=== PATIENT | female | born 1960 | race American Indian/Alaskan Native ===

== ENCOUNTER 2016-12-03 00:49 | Emergency (ER) | payer OTHER ==
[2016-12-03 00:57] VITALS: BMI 25.6
[2016-12-03 01:00] VITALS: BP 189/103; PULSE 99; RESP 18; TEMP 98.1; O2SAT 100
--- NOTE | 2016-12-03 01:36 | ED PDOC ---
Arrival/HPI - General Chief Complaint: Anxiety Time Seen by Provider: 12/03/16 00:59 Historian: Patient - History of Present Illness Narrative History of Present Illness (Text): 12/03/16 01:32 Tracy Figueroa is a 56 year old female who presents to the emergency department following a near-syncopal episode. Patient states that she passed out momentarily after learning that her son had just been shot and killed. She currently denies any somatic complaints. Time/Duration: 1 hour Symptom Onset: Sudden Severity Level: Moderate Activities at Onset: Significant (emotional distress ) Past Medical History - Provider Review Nursing Documentation Reviewed: Yes - Cardiac Hx Hypertension: Yes - Pulmonary Hx Respiratory Disorders: No - Neurological Hx Neurological Disorder: No - HEENT Hx HEENT Disorder: No - Renal Hx Renal Disorder: No - Endocrine/Metabolic Hx Endocrine Disorders: No - Hematological/Oncological Hx Blood Disorders: No - Integumentary Hx Dermatological Disorder: No - Musculoskeletal/Rheumatological Hx Musculoskeletal Disorders: No - Gastrointestinal Hx Gastrointestinal Disorders: No - Genitourinary/Gynecological Hx Genitourinary Disorders: No - Psychiatric Hx Psychophysiologic Disorder: No Hx Substance Use: No - Surgical History Hx Section: Yes Hx Cholecystectomy: Yes - Anesthesia Hx Anesthesia: Yes Hx Anesthesia Reactions: No Hx Malignant Hyperthermia: No Family/Social History - Physician Review Nursing Documentation Reviewed: Yes Family/Social History: No Known Family HX Smoking Status: Never Smoked Hx Alcohol Use: No Hx Substance Use: No Allergies/Home Meds Allergies/Adverse Reactions: Allergies No Known Allergies Allergy (Verified 12/03/16 01:02) Review of Systems - Physician Review All systems were reviewed & negative as marked: Yes - Review of Systems Constitutional: Normal. absent: Fatigue, Fevers Respiratory: Normal. absent: SOB, Cough Cardiovascular: Normal. absent: Chest Pain Neurological: Normal. absent: Headache, Dizziness Psychiatric: Other (emotional distress ). absent: Suicidal Ideation Physical Exam Vital Signs Reviewed: Yes Vital Signs Temp Pulse Resp BP Pulse Ox 12/03/16 00:59 98.1 F 99 H 18 189/103 H 100 Temperature: Afebrile Blood Pressure: Hypertensive Pulse: Tachycardic Respiratory Rate: Normal Appearance: Positive for: Well-Appearing, Non-Toxic, Comfortable Pain Distress: None Mental Status: Positive for: Alert and Oriented X 3 - Systems Exam Head: Present: Atraumatic, Normocephalic Pupils: Present: PERRL Conjunctiva: Present: Normal Respiratory/Chest: Present: Clear to Auscultation, Good Air Exchange. No: Respiratory Distress, Accessory Muscle Use Cardiovascular: Present: Regular Rate and Rhythm, Normal S1, S2. No: Murmurs Neurological: Present: GCS=15, CN II-XII Intact, Speech Normal Skin: Present: Warm, Dry, Normal Color. No: Rashes Psychiatric: Present: Alert, Oriented x 3, Normal Insight, Normal Concentration Medical Decision Making ED Course and Treatment: Progress Notes: 12/03/16 02:45 Patient states that she feels much better post treatment. States that she has family support at home and wants to be discharged home. - Lab Interpretations I have reviewed the lab results: Yes - EKG Interpretation Interpreted by ED Physician: Yes Type: 12 lead EKG - Medication Orders Current Medication Orders: Discontinued Medications Lorazepam (Ativan) 1 mg IM ONCE ONE PRN Reason: Protocol Stop: 12/03/16 01:16 Last Admin: 12/03/16 01:30 Dose: 1 MG Behavioural Document 12/03/16 01:30 EQ (Rec: 12/03/16 04:22 EQ [facility] [id number]) Maintenance Maintenance Dose No Nonmedicinal Nonmedicinal Interventions Redirect Therapeutic Communication Behavior Behavior for Medication: Anxiety Continuous crying/screaming/ yelling IM Administration Charges Document 12/03/16 01:30 EQ (Rec: 12/03/16 04:22 EQ [facility] [id number]) Injection Site MAR Injection Site Right Arm Charges for Administration # of IM Administrations 1 - Scribe Statement The provider has reviewed the documentation as recorded by the Remberto Cramer Provider Attestation: All medical record entries made by the Remberto were at my direction and personally dictated by me. I have reviewed the chart and agree that the record accurately reflects my personal performance of the history, physical exam, medical decision making, and the department course for this patient. I have also personally directed, reviewed, and agree with the discharge instructions and disposition. Disposition/Present on Arrival - Present on Arrival Any Indicators Present on Arrival: No History of DVT/PE: No History of Uncontrolled Diabetes: No Urinary Catheter: No History of Decub. Ulcer: No History Surgical Site Infection Following: None - Disposition Have Diagnosis and Disposition been Completed?: Yes Diagnosis: Stress reaction Disposition: HOME/ ROUTINE Disposition Time: 02:45 Condition: STABLE Additional Instructions: Please follow up with your doctor. Return to the ER for any worsening symptoms or for any other concerns. Prescriptions: LORazepam [Ativan] 1 mg PO Q8H PRN #6 tab PRN Reason: Anxiety
== END 2016-12-03 02:50 | disposition home or self-care (01) ==
LOC: MERGE 00:49 → ED 00:49
DX: F43.9 Reaction to severe stress, unspecified (principal)
CPT/HCPCS: 96372; 99283; J2060